=== PATIENT | male | born 1940 | race Caucasian/White ===

== ENCOUNTER 2017-02-23 10:46 | Outpatient (CLI) | payer MEDICARE | END 2017-02-23 10:47 | disposition home or self-care (01) | DX: R10.31 Right lower quadrant pain (principal); M54.9 Dorsalgia, unspecified; Z87.442 Personal history of urinary calculi; E03.9 Hypothyroidism, unspecified ==

== ENCOUNTER 2017-03-03 12:49 | Outpatient (CLI) | payer MEDICARE ==
[2017-03-03] MEDS ORDERED: IOPAMIDOL-300 100 ML VIAL IVP ONE (13:51)
--- NOTE | 2017-03-03 20:26 | CT Report ---
CT IVP: 03/03/2017 CLINICAL HISTORY: Patient has right flank pain and a history of kidney stones. COMPARISON: None. TECHNIQUE: Noncontrast and contrast enhanced CT exam of the urinary tract was obtained at 5 x 5 mm i ntervals with axial, coronal and sagittal reconstructions. Patient received 100 mL of Isovue-300 for the contrast enhanced portion of the exam. In accordance with CT protocol optimization, one or more of the following dose reduction techniques w ere utilized for this exam: automated exposure control, adjustment of mA and/or KV based on patient size, or use of iterative reconstructive technique. FINDINGS: Noncontrast CT of the urinary tract still shows residual contrast in patient's kidneys fro m apparently recent IV contrast examination. There is contrast in each pyelocalyceal system and uret er as well as a small amount of contrast material in patient's bladder. Because of the contrast pres ent in the urinary tract, cannot accurately comment regarding calculi in patient's kidneys. Recommen d that patient have a noncontrast CT exam of the urinary tract in one week to correlate with the pres ent study. The present contrast enhanced CT exam of the urinary tract shows the right kidney to cont ain several small renal cysts. Most of these measure only a few millimeters in diameter. There is o ne in the lower pole of the right kidney measuring 3.0 cm x 1.2 cm in diameter. The right pyelocalyc eal system is not distended. The right ureter is seen well and shows no significant abnormality. Th ere is a small radiolucent structure seen indenting the distal third of the right ureter that represe nts adjacent bowel. No true filling defect is seen in the right ureter. Without a noncontrast CT ex am, cannot completely exclude, however, a small nonobstructive calculus within the right ureter. Left kidney also shows several small benign cysts. They vary in size from a few millimeters to 1.2 c m. The left pyelocalyceal system and left ureter show no significant abnormality. Patient's base of the bladder has an appearance suggesting a previous TURP with elongation of the base of the bladder. Patient's prostate is only mildly enlarged. Adrenal glands appear normal. Liver and spleen appear normal. Pancreas is normal. Periaortic and pericaval region shows no significant abnormality. Bowel gas pattern demonstrates normal appendix. Small bowel appears normal. Small hiatal hernia is seen. Periaortic and pericaval region shows no adenopathy. Bones demonstrate anterior spurring in the lumbar spine with degenerative disk disease noted at all l evels of the lumbar spine. There is a nerve stimulator in the soft tissues of the patient's right ba ck with an electrode seen extending into the posterior aspect of the right pelvis. IMPRESSION: ADEQUATE NONCONTRAST CT EXAM OF THE URINARY TRACT WAS NOT OBTAINED TODAY. THE PATIENT HAD RESIDUAL C ONTRAST MATERIAL WITHIN THE PYELOCALYCEAL SYSTEMS, URETERS AND BLADDER FROM A RECENT IV CONTRAST STUD Y. THEREFORE, CANNOT ADEQUATELY COMMENT REGARDING CALCULI WITHIN THE URINARY TRACT. RECOMMEND NONCO NTRAST CT EXAM OF THE URINARY TRACT BE REPEATED IN 7-10 DAYS. MULTIPLE SMALL BENIGN CYSTS ARE NOTED IN EACH KIDNEY DISCUSSED ABOVE. NO SIGNIFICANT ABNORMALITY WAS DETECTED IN EITHER PYELOCALYCEAL SYSTEM OR URETER ON THE CONTRAST ENHA NCED STUDY. PATIENT'S BASE OF THE BLADDER AND PROXIMAL URETHRA HAVE A CONFIGURATION CONSISTENT WITH A PRIOR TURP. PATIENT HAS AN ELECTRODE IMPLANTED IN THE RIGHT POSTERIOR-INFERIOR PELVIS. THIS IS ATTACHED TO A STI MULATOR PACK IN THE RIGHT GLUTEAL REGION. JOB #: [id number] EXT JOB #:[id number]
== END 2017-03-03 12:50 | disposition home or self-care (01) ==
LOC: DI 12:49
PROVIDERS: ATTEND Family Medicine
DX: N28.1 Cyst of kidney, acquired (principal)
CPT/HCPCS: 74178; Q9967

== ENCOUNTER 2017-04-18 14:26 | Emergency (ER) | payer MEDICARE ==
--- NOTE | 2017-04-18 14:52 | ED Physician Documentation ---
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 and had a repeat surgery done on April 08 and for the last 3 days has had greenish drainage from the suture line.) Review of Systems Constitutional: denies: Fever, Chills Eyes: denies: Loss of vision, Decreased vision, Photophobia Ears: denies: Loss of hearing, Ear pain PD PAST MEDICAL HISTORY - Past Medical History Cardiovascular: Hypertension Endocrine/Autoimmune: HyPOthyroidism GI: GERD, Other : Benign prostate hypertrophy - Past Surgical History Past Surgical History: Yes General: Colonoscopy, Other - Present Medications Home Medications: Ambulatory Orders Medication Instructions Recorded Confirmed Methylprednisolone 4 mg PO TID 09/24/14 04/18/17 Calcium Carbonate [Calcium] 50 mg PO DAILY 09/25/14 04/18/17 Finasteride 5 mg PO DAILY 09/25/14 04/18/17 Levothyroxine [Synthroid] 75 mcg PO DAILY 09/25/14 04/18/17 Lisinopril 10 mg PO DAILY 09/25/14 04/18/17 Melatonin 3 mg PO DAILY 09/25/14 04/18/17 Meloxicam 7.5 mg PO DAILY 09/25/14 04/18/17 Pyridoxine HCl [Vitamin B-6] 50 mg PO DAILY 09/25/14 04/18/17 Tamsulosin [Flomax] 0.4 mg PO DAILY 09/25/14 04/18/17 Theanine [Vitamelts Relax] 25 mg PO DAILY 09/25/14 04/18/17 traZODone [Desyrel] 100 mg PO DAILY 09/25/14 04/18/17 Doxycycline Hyclate 100 mg PO BID #14 tablet 04/18/17 - Allergies Allergies/Adverse Reactions: Allergies Allergy/AdvReac Type Severity Reaction Status Date / Time No Known Drug Allergies Allergy Verified 04/18/17 14:50 - Social History Does the pt smoke?: No Smoking Status: Never smoker - Immunizations Immunizations are current?: Yes PD ED PE NORMAL - Vitals Vital signs reviewed: Yes - General General: Alert and oriented X 3, No acute distress - HEENT HEENT: PERRL, EOMI, Other (On the inferior eyelid of the left eye there is a horizontal suture line with mild surrounding cellulitis and drainage, sutures in place.) - Neck Neck: Supple, no meningeal sign, No bony TTP - Neuro Neuro: Alert and oriented X 3, Normal speech - Psych Psych: Normal mood, Normal affect Results - Vitals Vitals: Vital Signs - 24 hr 04/18/17 14:37 Temperature 36.4 C L Heart Rate 61 Respiratory 16 Rate Blood Pressure 110/67 O2 Saturation 96 Oxygen O2 Source Room air PD MEDICAL DECISION MAKING - ED course ED course: I placed a few phone calls to the answering service for his animal care assistant without return calls. So we will place him on doxycycline and he is to call them tomorrow, Wednesday. Departure - Departure Disposition: Home, Self Care Clinical Impression: Facial cellulitis Condition: Good Record reviewed to determine appropriate education?: Yes Instructions: ED Cellulitis Facial Prescriptions: Doxycycline Hyclate 100 mg PO BID #14 tablet Comments: Do not take your calcium supplement while on the antibiotics. Call your animal care assistant tomorrow for follow-up. Return if worse.
[2017-04-18] MEDS ORDERED: DOXYCYCLINE 100 MG TABLET PO STA (15:51)
[2017-04-18] MEDS ORDERED: DOXYCYCLINE 100 MG TABLET PO ONE (16:07)
[2017-04-18 16:20] VITALS: BP 132/78
== END 2017-04-18 16:18 | disposition home or self-care (01) ==
LOC: ED 14:26
DX: H00.036 Abscess of eyelid left eye, unspecified eyelid (principal); I10 Essential (primary) hypertension; Z98.890 Other specified postprocedural states; Z85.89 Personal history of malignant neoplasm of other organs and systems
CPT/HCPCS: 99282; 99283; A9270

== ENCOUNTER 2017-10-25 08:00 | Outpatient (CLI) | payer MEDICARE ==
[2017-10-25 18:56] LABS: BASOPHILS # (AUTO) 0.1 10^3/uL (0.0-0.1); EOSINOPHILS # (AUTO) 0.4 10^3/uL (0.0-0.7); EOSINOPHILS % (AUTO) 5.5 %; HGB - HEMOGLOBIN 15.2 g/dL (14.0-18.0); LYMPHOCYTES # (AUTO) 1.5 10^3/uL (1.5-3.5); MEAN CORPUSCULAR HEMOGLOBIN 32.8 pg (27.0-31.0); MEAN CORPUSCULAR HGB CONC 33.2 g/dL (32.0-36.0); MEAN CORPUSCULAR VOLUME 98.8 fL (80.0-94.0); MEAN PLATELET VOLUME 9.8 fL (7.4-11.4); MONOCYTES # (AUTO) 0.6 10^3/uL (0.0-1.0); MONOCYTES % (AUTO) 7.9 %; NEUTROPHILS # (AUTO) 4.8 10^3/uL (1.5-6.6); NEUTROPHILS % (AUTO) 65.6 %; PLT - PLATELET COUNT 183 10^3/uL (130-450); RED BLOOD COUNT 4.64 10^6/uL (4.70-6.10); RED CELL DISTRIBUTION WIDTH 13.9 % (12.0-15.0); WHITE BLOOD COUNT 7.3 x10^3/uL (4.8-10.8)
== END 2017-10-25 08:01 | disposition home or self-care (01) ==
LOC: LAB.WCP 08:00
PROVIDERS: ATTEND Psychiatry & Neurology Neurology
DX: G70.00 Myasthenia gravis without (acute) exacerbation (principal); R91.8 Other nonspecific abnormal finding of lung field
CPT/HCPCS: 36415; 85025

== ENCOUNTER 2017-11-01 08:00 | Outpatient (CLI) | payer MEDICARE ==
[2017-11-01 19:11] LABS: BASOPHILS % (AUTO) 0.8 %; EOSINOPHILS # (AUTO) 0.2 10^3/uL (0.0-0.7); EOSINOPHILS % (AUTO) 3.8 %; HGB - HEMOGLOBIN 14.7 g/dL (14.0-18.0); LYMPHOCYTES # (AUTO) 0.9 10^3/uL (1.5-3.5); LYMPHOCYTES % (AUTO) 15.6 %; MEAN CORPUSCULAR HEMOGLOBIN 33.2 pg (27.0-31.0); MEAN CORPUSCULAR HGB CONC 33.7 g/dL (32.0-36.0); MEAN CORPUSCULAR VOLUME 98.4 fL (80.0-94.0); MEAN PLATELET VOLUME 9.6 fL (7.4-11.4); MONOCYTES # (AUTO) 0.9 10^3/uL (0.0-1.0); MONOCYTES % (AUTO) 14.5 %; NEUTROPHILS # (AUTO) 3.9 10^3/uL (1.5-6.6); NEUTROPHILS % (AUTO) 65.3 %; PLT - PLATELET COUNT 169 10^3/uL (130-450); RED BLOOD COUNT 4.42 10^6/uL (4.70-6.10); RED CELL DISTRIBUTION WIDTH 13.3 % (12.0-15.0)
== END 2017-11-01 08:01 | disposition home or self-care (01) ==
LOC: LAB.WCP 08:00
PROVIDERS: ATTEND Psychiatry & Neurology Neurology
DX: G70.00 Myasthenia gravis without (acute) exacerbation (principal); R91.8 Other nonspecific abnormal finding of lung field
CPT/HCPCS: 36415; 85025

== ENCOUNTER 2017-11-08 14:36 | Outpatient (CLI) | payer MEDICARE ==
[2017-11-08 19:36] LABS: BASOPHILS # (AUTO) 0.1 10^3/uL (0.0-0.1); BASOPHILS % (AUTO) 1.2 %; EOSINOPHILS # (AUTO) 0.1 10^3/uL (0.0-0.7); EOSINOPHILS % (AUTO) 1.6 %; LYMPHOCYTES # (AUTO) 0.9 10^3/uL (1.5-3.5); LYMPHOCYTES % (AUTO) 12.7 %; MEAN CORPUSCULAR HEMOGLOBIN 33.4 pg (27.0-31.0); MEAN CORPUSCULAR VOLUME 101.2 fL (80.0-94.0); MEAN PLATELET VOLUME 9.8 fL (7.4-11.4); MONOCYTES # (AUTO) 0.4 10^3/uL (0.0-1.0); MONOCYTES % (AUTO) 5.4 %; NEUTROPHILS # (AUTO) 5.5 10^3/uL (1.5-6.6); NEUTROPHILS % (AUTO) 79.1 %; PLT - PLATELET COUNT 165 10^3/uL (130-450); RED BLOOD COUNT 4.48 10^6/uL (4.70-6.10); RED CELL DISTRIBUTION WIDTH 13.8 % (12.0-15.0)
== END 2017-11-08 14:37 | disposition home or self-care (01) ==
LOC: LAB.WCP 14:36
PROVIDERS: ATTEND Psychiatry & Neurology Neurology
DX: G70.00 Myasthenia gravis without (acute) exacerbation (principal); R91.8 Other nonspecific abnormal finding of lung field
CPT/HCPCS: 36415; 85025

== ENCOUNTER 2017-11-15 09:00 | Outpatient (CLI) | payer MEDICARE ==
[2017-11-15 19:42] LABS: BASOPHILS % (AUTO) 0.5 %; EOSINOPHILS # (AUTO) 0.2 10^3/uL (0.0-0.7); EOSINOPHILS % (AUTO) 2.5 %; HGB - HEMOGLOBIN 14.7 g/dL (14.0-18.0); LYMPHOCYTES # (AUTO) 1.1 10^3/uL (1.5-3.5); LYMPHOCYTES % (AUTO) 13.4 %; MEAN CORPUSCULAR HEMOGLOBIN 32.8 pg (27.0-31.0); MEAN CORPUSCULAR HGB CONC 33.4 g/dL (32.0-36.0); MEAN CORPUSCULAR VOLUME 98.3 fL (80.0-94.0); MEAN PLATELET VOLUME 9.9 fL (7.4-11.4); MONOCYTES # (AUTO) 0.8 10^3/uL (0.0-1.0); MONOCYTES % (AUTO) 10.4 %; NEUTROPHILS # (AUTO) 5.7 10^3/uL (1.5-6.6); NEUTROPHILS % (AUTO) 73.2 %; PLT - PLATELET COUNT 152 10^3/uL (130-450); RED BLOOD COUNT 4.47 10^6/uL (4.70-6.10); RED CELL DISTRIBUTION WIDTH 13.5 % (12.0-15.0); WHITE BLOOD COUNT 7.8 x10^3/uL (4.8-10.8)
== END 2017-11-15 09:01 | disposition home or self-care (01) ==
LOC: LAB.WCP 09:00
PROVIDERS: ATTEND Psychiatry & Neurology Neurology
DX: G70.00 Myasthenia gravis without (acute) exacerbation (principal); R91.8 Other nonspecific abnormal finding of lung field
CPT/HCPCS: 36415; 85025

== ENCOUNTER 2017-11-25 11:16 | Outpatient (CLI) | payer MEDICARE ==
[2017-11-25 18:37] LABS: BASOPHILS # (AUTO) 0.1 10^3/uL (0.0-0.1); BASOPHILS % (AUTO) 0.6 %; EOSINOPHILS # (AUTO) 0.3 10^3/uL (0.0-0.7); EOSINOPHILS % (AUTO) 2.7 %; HGB - HEMOGLOBIN 14.5 g/dL (14.0-18.0); LYMPHOCYTES # (AUTO) 1.4 10^3/uL (1.5-3.5); LYMPHOCYTES % (AUTO) 14.7 %; MEAN CORPUSCULAR HEMOGLOBIN 32.3 pg (27.0-31.0); MEAN CORPUSCULAR VOLUME 98.1 fL (80.0-94.0); MEAN PLATELET VOLUME 9.9 fL (7.4-11.4); MONOCYTES # (AUTO) 1.1 10^3/uL (0.0-1.0); MONOCYTES % (AUTO) 11.3 %; NEUTROPHILS # (AUTO) 6.7 10^3/uL (1.5-6.6); NEUTROPHILS % (AUTO) 70.7 %; PLT - PLATELET COUNT 164 10^3/uL (130-450); RED BLOOD COUNT 4.49 10^6/uL (4.70-6.10); RED CELL DISTRIBUTION WIDTH 13.4 % (12.0-15.0); WHITE BLOOD COUNT 9.5 x10^3/uL (4.8-10.8)
== END 2017-11-25 11:17 | disposition home or self-care (01) ==
LOC: LAB.WCP 11:16
PROVIDERS: ATTEND Psychiatry & Neurology Neurology
DX: G70.00 Myasthenia gravis without (acute) exacerbation (principal); R91.8 Other nonspecific abnormal finding of lung field
CPT/HCPCS: 36415; 85025

== ENCOUNTER 2017-12-02 11:30 | Outpatient (CLI) | payer MEDICARE ==
[2017-12-02 18:43] LABS: BASOPHILS % (AUTO) 0.6 %; EOSINOPHILS # (AUTO) 0.2 10^3/uL (0.0-0.7); EOSINOPHILS % (AUTO) 2.9 %; HGB - HEMOGLOBIN 14.3 g/dL (14.0-18.0); LYMPHOCYTES # (AUTO) 1.1 10^3/uL (1.5-3.5); LYMPHOCYTES % (AUTO) 14.3 %; MEAN CORPUSCULAR HEMOGLOBIN 32.2 pg (27.0-31.0); MEAN CORPUSCULAR HGB CONC 33.2 g/dL (32.0-36.0); MEAN CORPUSCULAR VOLUME 97.1 fL (80.0-94.0); MEAN PLATELET VOLUME 9.7 fL (7.4-11.4); MONOCYTES % (AUTO) 12.9 %; NEUTROPHILS # (AUTO) 5.4 10^3/uL (1.5-6.6); NEUTROPHILS % (AUTO) 69.3 %; PLT - PLATELET COUNT 165 10^3/uL (130-450); RED BLOOD COUNT 4.43 10^6/uL (4.70-6.10); RED CELL DISTRIBUTION WIDTH 13.2 % (12.0-15.0); WHITE BLOOD COUNT 7.8 x10^3/uL (4.8-10.8)
== END 2017-12-02 11:31 | disposition home or self-care (01) ==
LOC: LAB.WCP 11:30
PROVIDERS: ATTEND Psychiatry & Neurology Neurology
DX: G70.00 Myasthenia gravis without (acute) exacerbation (principal); R91.8 Other nonspecific abnormal finding of lung field
CPT/HCPCS: 36415; 85025

== ENCOUNTER 2018-04-27 16:05 | Emergency (ER) | payer MEDICARE ==
[2018-04-27 18:21] LABS: BILIRUBIN,URINE NEGATIVE (NEGATIVE); GLUCOSE, URINE (UA) NEGATIVE (NEGATIVE); KETONES,URINE (UA) NEGATIVE (NEGATIVE); LEUKOCYTE ESTERASE, URINE NEGATIVE (NEGATIVE); NITRITE,URINE NEGATIVE (NEGATIVE); OCCULT BLOOD,URINE TRACE-INTA (NEGATIVE); PROTEIN,URINE NEGATIVE (NEGATIVE); UROBILINOGEN,URINE 0.2 (NORMAL) E.U./dL (NORMAL)
[2018-04-27 18:23] LABS: CLARITY,URINE CLEAR (CLEAR)
--- NOTE | 2018-04-27 19:50 | ED Physician Documentation ---
History of Present Illness - Stated complaint Stated Complaint: MALE - Chief complaint Chief Complaint: Abd Pain - Additonal information Additional information: 77-year-old male presents the emergency department with urinary frequency for the past several days which is progressively worsened. The patient denies dysuria, flank pain or hematuria. No triggering factors. No relieving factors. No other associated symptoms Review of Systems Constitutional: denies: Fever, Chills Cardiac: denies: Chest pain / pressure Respiratory: denies: Dyspnea GI: denies: Abdominal Pain : reports: Frequency. denies: Dysuria Neurologic: denies: Generalized weakness PD PAST MEDICAL HISTORY - Past Medical History Past Medical History: Yes Cardiovascular: Hypertension Endocrine/Autoimmune: HyPOthyroidism GI: GERD, Other : Benign prostate hypertrophy Other Past Medical History: Myasthenia Gravis; skin Ca - Past Surgical History Past Surgical History: Yes General: Colonoscopy, Other - Present Medications Home Medications: Ambulatory Orders Medication Instructions Recorded Confirmed methylPREDNISolone 4 mg PO TID 09/24/14 04/18/17 [Methylprednisolone] Calcium Carbonate [Calcium] 50 mg PO DAILY 09/25/14 04/18/17 Finasteride 5 mg PO DAILY 09/25/14 04/18/17 Levothyroxine [Synthroid] 75 mcg PO DAILY 09/25/14 04/18/17 Lisinopril 10 mg PO DAILY 09/25/14 04/18/17 Melatonin 3 mg PO DAILY 09/25/14 04/18/17 Tamsulosin [Flomax] 0.4 mg PO DAILY 09/25/14 04/18/17 Theanine [Vitamelts Relax] 25 mg PO DAILY 09/25/14 04/18/17 traZODone [Desyrel] 100 mg PO DAILY 09/25/14 04/18/17 Cetirizine [ZyrTEC] 04/27/18 Gabapentin [Gabapentin] 04/27/18 Mycophenolate Mofetil 04/27/18 Omeprazole [PriLOSEC] 04/27/18 Pyridostigmine [place] [Mestinon] 04/27/18 - Allergies Allergies/Adverse Reactions: Allergies Allergy/AdvReac Type Severity Reaction Status Date / Time No Known Drug Allergies Allergy Verified 04/27/18 16:22 - Social History Does the pt smoke?: No Smoking Status: Never smoker Does the pt drink ETOH?: No Does the pt have substance abuse?: No - Immunizations Immunizations are current?: Yes - POLST Patient has POLST: No PD ED PE NORMAL - General General: Alert and oriented X 3, No acute distress - HEENT HEENT: Atraumatic, PERRL - Abdomen Abdomen: Normal bowel sounds, Non tender, Non distended - Derm Derm: Normal color - Extremities Extremities: No deformity - Neuro Neuro: Alert and oriented X 3, No motor deficit - Psych Psych: Normal mood Results - Vitals Vitals: Vital Signs - 24 hr 04/27/18 04/27/18 16:20 20:00 Temperature 36 C L 36.0 C L Heart Rate 65 57 L Respiratory 18 16 Rate Blood Pressure 111/77 121/82 H O2 Saturation 98 99 Oxygen O2 Source Room air - Labs Labs: Laboratory Tests 04/27/18 18:15 Urine Color YELLOW Urine Clarity CLEAR Urine pH 6.0 Ur Specific [place] 1.020 Urine Protein NEGATIVE Urine Glucose (UA) NEGATIVE Urine Ketones NEGATIVE Urine Occult Blood TRACE-INTA Urine Nitrite NEGATIVE Urine Bilirubin NEGATIVE Urine Urobilinogen 0.2 (NORMAL) Ur Leukocyte Esterase NEGATIVE Ur Microscopic Review NOT INDICATED Urine Culture Comments NOT INDICATED PD MEDICAL DECISION MAKING - ED course ED course: The patient's workup Does not show evidence of an acute urinary tract infection and the patient's Postvoid residual does not indicate the need for a indwelling Kam catheter. The patient appears appropriate for discharge and reevaluation by his urologist as an outpatient. I discussed warning signs and recommended return to the emergency department for worsening or any concerns. - Sepsis Event Vital Signs: Vital Signs - 24 hr 04/27/18 04/27/18 16:20 20:00 Temperature 36 C L 36.0 C L Heart Rate 65 57 L Respiratory 18 16 Rate Blood Pressure 111/77 121/82 H O2 Saturation 98 99 Oxygen O2 Source Room air Departure - Departure Disposition: 01 Home, Self Care Clinical Impression: Urinary frequency Condition: Good Instructions: ED Dysuria Uncertain Cause Ch Comments: Please follow-up with your urologist for further workup and management of your symptoms. Please return to the emergency department for worsening symptoms or any concerns Discharge Date/Time: 04/27/18 20:00
[2018-04-27 20:04] VITALS: BP 121/82
== END 2018-04-27 20:00 | disposition home or self-care (01) ==
LOC: ED 16:05
DX: R35.0 Frequency of micturition (principal)
CPT/HCPCS: 81001; 81003; 87086; 99282; 99283